=== PATIENT | female | born 1955 | race African-American/Black ===

== ENCOUNTER 2019-12-16 19:54 | Emergency (ER) | payer OTHER ==
[2019-12-16] MEDS ORDERED: Lidocaine 1% w/Epinephrine 1:100K 20 ML VIAL ONE ×2 (20:55→21:07)
== END 2019-12-16 21:50 | disposition home or self-care (01) ==
LOC: MADERS 19:54
DX: S61.012A Laceration without foreign body of left thumb without damage to nail, initial encounter (principal); I10 Essential (primary) hypertension; W26.8XXA Contact with other sharp object(s), not elsewhere classified, initial encounter
CPT/HCPCS: 12001